=== PATIENT | female | born 1965 | race Caucasian/White ===

== ENCOUNTER 2023-03-08 00:52 | Emergency (ER) | payer MEDICARE, OTHER ==
[~2023-03-08] VITALS: Ht 157.5 cm; Wt 72.1 kg
[2023-03-08] MEDS ORDERED: SULFAMETHOXAZO1 EAC1 PO (01:13)
[2023-03-08] MEDS ORDERED: K-TAB ER20 ME1 PO (01:13)
[2023-03-08 02:26] LABS: Bun/Creatinine Ratio 22.9 (12.0-20.0); Calcium, Blood 8.9 mg/dL (8.5-10.1); Creatinine, Blood 0.92 mg/dL (0.40-1.00)
[2023-03-08 02:28] LABS: Hematocrit 36.1 % (33.0-51.0); Hemoglobin 11.5 g/dL (11.5-16.0); Mean Corpuscular HGB 25.1 pg (26.0-34.0); Mean Corpuscular HGB Conc 31.9 g/dL (31.5-36.5); Mean Corpuscular Volume 79 fL (80-100); Mean Platelet Volume 10.5 fL (9.1-12.4); Platelet Count 296 K/mm3 (150-400); RDW Coefficient Variation 17.2 % (11.7-14.2); RDW Standard Deviation 48.7 fL (35.1-46.3); Red Blood Cell Count 4.58 M/mm3 (3.80-5.20)
[2023-03-08] MEDS ORDERED: Voltaren100 GM TOP (02:44)
[2023-03-08 02:52] LABS: BASOPHILS ABSOLUTE MAN 0.08 K/mm3 (0.00-0.23); BASOPHILS PERCENT MAN 1 % (0-2); EOSINOPHILS ABSOLUTE MAN 0.16 K/mm3 (0.00-0.68); EOSINOPHILS PERCENT MAN 2 % (0-6); LYMPHOCYTES ABSOLUTE MAN 3.36 K/mm3 (0.84-5.20); LYMPHOCYTES PERCENT MAN 41 % (21-46); MONOCYTES ABSOLUTE MAN 0.57 K/mm3 (0.16-1.47); MONOCYTES PERCENT MAN 7 % (4-13); NEUTROPHILS ABSOLUTE MAN 4.01 K/mm3 (1.96-9.15); SEG NEUTROPHILS PERCENT MAN 49 % (41-73); TOTAL CELLS COUNTED 100
[2023-03-08 03:30] VITALS: BP 144/94
== END 2023-03-08 04:35 | disposition home or self-care (01) ==
LOC: ER 00:52
PROVIDERS: Emergency Medicine
DX: M17.12 Unilateral primary osteoarthritis, left knee (principal); I25.2 Old myocardial infarction; E11.40 Type 2 diabetes mellitus with diabetic neuropathy, unspecified; J44.9 Chronic obstructive pulmonary disease, unspecified; Z86.718 Personal history of other venous thrombosis and embolism; Z88.6 Allergy status to analgesic agent; Z88.8 Allergy status to other drugs, medicaments and biological substances; Z88.5 Allergy status to narcotic agent
CPT/HCPCS: 73562-LT; 80048; 85025; 93971; A9270

== ENCOUNTER 2024-04-28 10:29 | Inpatient (IN) | payer MEDICARE, OTHER ==
[2024-04-28] VITALS (18 sets, daily range): BP systolic 110–162; BP diastolic 59–140
[~2024-04-28] VITALS: Ht 162.6 cm; Wt 74.2 kg
[~2024-04-28 10:29] MED LIST: K-TAB ER20 ME1 PO; SULFAMETHOXAZO1 EAC1 PO; Voltaren100 GM TOP
[2024-04-28] MEDS ORDERED: Ipratropium/Albuterol SulF 2.5-0.5MG/3 ML Amp INH ONE (11:00)
[2024-04-28] MEDS ORDERED: Albuterol 2.5 MG/3 ML VIAL INH SCH ×2 (11:00→13:00)
[2024-04-28 11:03] LABS: BASOPHILS ABSOLUTE AUTO 0.07 K/mm3 (0.00-0.23); BASOPHILS PERCENT AUTO 1 % (0-2); EOSINOPHILS PERCENT AUTO 1 % (0-6); Hemoglobin 12.1 g/dL (11.5-16.0); IMMATURE GRAN ABSOLUTE AUTO 0.05 K/mm3 (0.00-0.10); IMMATURE GRAN PERCENT AUTO 1 % (0-1); LYMPHOCYTES ABSOLUTE AUTO 2.23 K/mm3 (0.84-5.20); LYMPHOCYTES PERCENT AUTO 24 % (21-46); MONOCYTES ABSOLUTE AUTO 0.61 K/mm3 (0.16-1.47); MONOCYTES PERCENT AUTO 7 % (4-13); Mean Corpuscular HGB 25.3 pg (26.0-34.0); Mean Corpuscular Volume 81 fL (80-100); Mean Platelet Volume 10.2 fL (9.1-12.4); NEUTROPHILS ABSOLUTE AUTO 6.21 K/mm3 (1.96-9.15); NEUTROPHILS PERCENT AUTO 67 % (41-73); Platelet Count 353 K/mm3 (150-400); RDW Standard Deviation 44.6 fL (35.1-46.3); Red Blood Cell Count 4.79 M/mm3 (3.80-5.20); White Blood Cell Count 9.27 K/mm3 (4.00-11.30)
[2024-04-28] MEDS ORDERED: Midazolam HCl 1MG / ML 2ML Vial IV ONE (11:05)
[2024-04-28] MEDS ORDERED: MethylPREDNISolone Sod Succ 125 MG Vial IV ONE (11:05)
[2024-04-28 11:27] LABS: Albumin/Globulin Ratio 0.7 (0.8-1.8); Bilirubin, Total 0.3 mg/dL (0.1-1.0); Bun/Creatinine Ratio 27.3 (12.0-20.0); Calcium, Blood 9.1 mg/dL (8.5-10.1); Creatinine, Blood 0.81 mg/dL (0.40-1.00); Globulin, Blood 4.3 g/dL (2.2-4.0); Potassium, Blood 4.2 mmol/L (3.5-5.5); Total Protein, Blood 7.3 g/dL (6.4-8.2)
[2024-04-28] MEDS ORDERED: Nitroglycerin 1 INCH/GM PKT TOP ONE (12:05)
[2024-04-28] MEDS ORDERED: Azithromycin 500 MG in NS 250 ML IV ONE (13:05)
[2024-04-28] MEDS ORDERED: Nitroglycerin/D5W 250 ML IV SCH (13:15)
[2024-04-28 13:19] LABS: International Normalized Ratio 0.96; Prothrombin Time Results 10.3 Sec (9.7-11.5)
[2024-04-28] MEDS ORDERED: FLU VACC TS2024-25(6MOS UP)/PF 45 MCG/0.5 ML SYRINGE IM SCH (13:45)
[2024-04-28] MEDS ORDERED: Ondansetron HCl 2 MG / ML 2ML Vial IV PRN (13:50)
[2024-04-28] MEDS ORDERED: TraZODone HCl 50 MG Tab PO PRN (13:50)
[2024-04-28] MEDS ORDERED: CefTRIAXone Sodium 2,000 MG in NS 100 ML IV SCH (14:00)
[2024-04-28] MEDS ORDERED: HydrOXYzine Pamoate 25 MG Cap PO PRN (14:00)
[2024-04-28] MEDS ORDERED: Ipratropium/Albuterol SulF 2.5-0.5MG/3 ML Amp INH SCH (14:05)
[2024-04-28] MEDS ORDERED: Tiotropium Bromide 2.5 MCG/ACT MIST INHAL (10 ACT/4 GM) INH SCH (14:05)
[2024-04-28] MEDS ORDERED: HYDROmorphone HCl/Pf 1MG SYR IV PRN (14:10)
[2024-04-28] MEDS ORDERED: Mometasone/Formoterol MDI 200/5 mcg 13 GM INH SCH (14:20)
[2024-04-28] MEDS ORDERED: Heparin Sodium 5000 Units/ML 1ML MDV IV ONE (14:25)
[2024-04-28] MEDS ORDERED: Heparin Sodium,Porcine/0.5 NS 500 ML IV SCH (14:25)
[2024-04-28] MEDS ORDERED: Insulin Human Lispro 100 Units/ML 3ML Syringe SC SCH (16:30)
[2024-04-28] MEDS ORDERED: Furosemide 10 MG/ML 4ML Vial IV SCH (18:00)
[2024-04-28] MEDS ORDERED: MethylPREDNISolone Sod Succ 125 MG Vial IV SCH (18:00)
--- NOTE | 2024-04-28 19:33 | NUR ---
ICU ADMISSION / SHIFT SUMMARY: REPORT RECEIVED FROM PEPE HAMMER IN ED. PT ARRIVED TO ICU-14 AT APPROX 1650. ON ARRIVAL, THE PT IS DROWSY BUT AWAKENS TO VERBAL STIMULUS & IS ORIENTED TO ALL AT THAT TIME. SHE IS ON BIPAP WITH SETTINGS 12/6 & 30% FIO2 WITH O2 SATS > 92%. MONITOR SHOWS AFIB WITH HR 100-110s, HTN - SEE VS. NPO R/T RESPIRATORY STATUS. VOIDS URINE USING BEDPAN, DIURESIS PER EMAR. SKIN CONDITION OVERALL INTACT, PT REPOSITIONS SELF FOR COMFORT. CALL TO DR HUMPHREY THIS EVENING AFTER PT REQUESTING BREAK FROM BIPAP, SHE HAS BEEN TOLERATING 3L NC WELL WITH O2 SATS > 94%. WORK OF BREATHING INCREASED SLIGHTLY BUT OVERALL TOLERATING BREAK WELL. PROVIDER OKAY'd DIET ORDER. THE PROVIDER IS ALSO NOTIFIED THAT THE PT DOES NOT WISH TO BE A FULL CODE. SHE STS THAT SHE WOULD LIKE TO "GO BE WITH" HER IF IT IS "HER TIME TO GO." SHE FURTHER CLARIFIES THAT SHE WOULD WANT NO LIFE-SAVING INTERVENTIONS IF SHE WAS TO EXPERIENCE A CARDIOPULMONARY ARREST. ORDERS UPDATED TO REFLECT DNR STATUS. REPORT GIVEN TO PEPE GAMBLE TO ASSUME CARE.
[2024-04-28 19:59] LABS: Source, Urine Clean Catch
[2024-04-28 20:10] LABS: Appearance, Urine Hazy (Clear); Bilirubin, Urine Neg (Neg); Blood, Urine Neg (Neg); Glucose Qualitative, Urine 2+ (Neg); Ketones, Urine Neg (Neg); Leukocyte Esterase, Urine 2+ (Neg); Nitrite, Urine Neg (Neg); Protein, Urine 2+ (Neg); Urobilinogen, Urine NORM (Normal)
[2024-04-28 20:51] LABS: Color, Urine Pale Yellow (P-Yellow)
[2024-04-28 20:52] LABS: Bacteria Many /hpf; Mucus Light (0-Heavy); Red Blood Cells, Urine 0-2 /hpf (0-2); Squamous Epithelial Cells Rare /hpf (Few)
[2024-04-28] MEDS ORDERED: Famotidine 20 MG Tab PO SCH (21:00)
[2024-04-28] MEDS ORDERED: GuaiFENesin 600 MG TabCR PO SCH (21:00)
[2024-04-28] MEDS ORDERED: Metoprolol Tartrate 25 MG Tab PO SCH (21:00)
[2024-04-28] MEDS ORDERED: Lactobacil 2-S.Thermo-Bifido 1 1 Cap PO SCH (21:00)
[2024-04-28] MEDS ORDERED: Docusate Sodium 100 MG Cap PO SCH (21:00)
--- NOTE | 2024-04-28 22:00 | NUR ---
ASSUMPTION OF CARE/ASSESSMENT: ASSUMED CARE OF PT AT 1900; REPORT RECIEVED FROM EFRAIN CANTU. PT A&O X 4, ANXIOUS AND FOLLOWING DIRECTIONS. CURRENTLY PT HAS NC @ 2LPM, SPO2 94< AND LUNGS ARE CLEAR T/O; DRY COUGH NOTED, DENIES SOB AT THIS TIME. AFIB ON MONITOR WITH HR 110-140'S, C/O CHEST PAIN, 7/10 WITH DEFERRED PAIN TO BACK, NECK AND LEFT ARM. NITRO @ 10 MCG/MIN, HEPARIN @ 15 UNITS/HR. ABD OBESE, SOFT AND HYPOACTIVE BOWEL TONES NOTED; PT TOLERATES PO INTAKE. PT USING BEDPAN FOR ELIMINATION NEEDS; BEDREST AT THIS TIME DUE TO HR. GREER, MINIMAL ASSIST WITH REPOSITIONING. LH PATENT AND INFUSING, LAC PATENT AND INFUSING. PRN ANIXETY MEDS PER EMAR. BED LOWERED, CALL LIGHT IN REACH.
[2024-04-28] MEDS ORDERED: Clarify Drug Order XX ONE (22:25)
[2024-04-29] VITALS (30 sets, daily range): BP systolic 102–167; BP diastolic 76–128
[2024-04-29 03:38] LABS: BASOPHILS ABSOLUTE AUTO 0.01 K/mm3 (0.00-0.23); BASOPHILS PERCENT AUTO 0 % (0-2); EOSINOPHILS PERCENT AUTO 0 % (0-6); Hemoglobin 10.7 g/dL (11.5-16.0); IMMATURE GRAN ABSOLUTE AUTO 0.03 K/mm3 (0.00-0.10); IMMATURE GRAN PERCENT AUTO 0 % (0-1); LYMPHOCYTES ABSOLUTE AUTO 0.83 K/mm3 (0.84-5.20); LYMPHOCYTES PERCENT AUTO 7 % (21-46); MONOCYTES ABSOLUTE AUTO 0.15 K/mm3 (0.16-1.47); MONOCYTES PERCENT AUTO 1 % (4-13); Mean Corpuscular HGB 25.1 pg (26.0-34.0); Mean Corpuscular HGB Conc 31.5 g/dL (31.5-36.5); Mean Corpuscular Volume 80 fL (80-100); Mean Platelet Volume 10.3 fL (9.1-12.4); NEUTROPHILS ABSOLUTE AUTO 11.25 K/mm3 (1.96-9.15); NEUTROPHILS PERCENT AUTO 92 % (41-73); Platelet Count 327 K/mm3 (150-400); RDW Coefficient Variation 15.2 % (11.7-14.2); RDW Standard Deviation 43.5 fL (35.1-46.3); Red Blood Cell Count 4.26 M/mm3 (3.80-5.20); White Blood Cell Count 12.27 K/mm3 (4.00-11.30)
[2024-04-29 04:00] LABS: Albumin, Blood 2.7 g/dL (3.4-5.0); Albumin/Globulin Ratio 0.7 (0.8-1.8); Bilirubin, Total 0.3 mg/dL (0.1-1.0); Bun/Creatinine Ratio 32.5 (12.0-20.0); Calcium, Blood 8.5 mg/dL (8.5-10.1); Creatinine, Blood 0.77 mg/dL (0.40-1.00); Globulin, Blood 3.7 g/dL (2.2-4.0); Potassium, Blood 4.3 mmol/L (3.5-5.5); Total Protein, Blood 6.4 g/dL (6.4-8.2)
[2024-04-29] MEDS ORDERED: OxyCODONE HCL 5 MG TAB PO PRN ×3 (05:00→11:30)
[2024-04-29] MEDS ORDERED: Calcium Carbonate 500 MG Tab Chew PO PRN (05:00)
[2024-04-29] MEDS ORDERED: Clarify Drug Order XX ONE (05:20)
[2024-04-29] MEDS ORDERED: Albuterol 2.5 MG/3 ML VIAL INH PRN (05:20)
--- NOTE | 2024-04-29 06:29 | NUR ---
SHIFT SUMMARY: NO ACUTE CHANGES OVERNIGHT; VSS THROUGHOUT THE SHIFT. NITRO GTT OFF, CHEST PAIN RESOLVED AT THIS TIME. PT C/O BACK AND NECK PAIN, PRN OXYCODONE GIVEN WITH GOOD RELIEF. PT RESTLESS AND UNABLE TO GET MUCH SLEEP; PT RESTING NOW AFTER PAIN MED. PT ANXIOUS THROUGHOUT THE SHIFT AND OBSERVED TO BE HAVING FEELINGS OF HOPELESSNESS STATING THAT SHE JUST WANTS "TO BE REUNITED WITH MY " WHOM HAS PASSED ABOUT 2 MONTHS AGO; WHEN ASKED ABOUT SI, PT DECLINES. URINE OUTPUT GOOD. BED LOWERED, CALL LIGHT IN REACH.
--- NOTE | 2024-04-29 07:00 | NUR ---
ASSUMED CARE PT RESTING WITH EYES CLOSED DURING BSSR. SHE HAS HEPARIN INFUSING @ 15UNITS/KG/HR. PT HAS HOB ELEVATED TO 30. HER SPO2 IS >96% ON RA. HER BREATHING IS EVEN AND UNLABORED. PT HAS CONTINUOUS CARDIAC MONITORING, HER SYSTOLIC BP >130 W/ SYSTOLIC >100. PER NOC RN, SHE HAS NOT COMPLAINED OF CHEST PAIN SINCE DC HER NITROGLYCERIN DRIP ON TECHNICAL SOURCING RECRUITER. HER HR IS 100-110S. BED IN LOWEST POSITION. CALL LIGHT IN REACH.
[2024-04-29] MEDS ORDERED: Heparin Sodium,Porcine 5,000 UNIT/0.5 ML SDV SC SCH (09:00)
[2024-04-29] MEDS ORDERED: ALPR.5 PO (09:04)
[2024-04-29] MEDS ORDERED: ALPRAZolam 0.25 MG Tab PO PRN (09:05)
[2024-04-29] MEDS ORDERED: Prochlorperazine Maleate 5 MG Tab PO PRN (09:10)
[2024-04-29] MEDS ORDERED: Zolpidem Tartrate 5 MG Tab PO PRN (09:10)
[2024-04-29] MEDS ORDERED: Citalopram Hydrobromide 10 MG TAB PO SCH (10:00)
[2024-04-29] MEDS ORDERED: Nicotine 21 MG PATCH TOP SCH (13:00)
[2024-04-29] MEDS ORDERED: Digoxin 0.25 MG/ML 2ML Amp IV ONE (13:00)
--- NOTE | 2024-04-29 14:24 | NUR ---
"Spiritual Care Visit | Pt. Request Pt. is laying in bed awake when she welcomes my visit. Pt. is unsettled about the circumstances in her life. The Pt. is grieving the loss of her , and verbalizes despair about the corcumsyances of her life. The Pt. verbalizes that her primary motivation to get well are her dogs. Pt. displayed evidence of blaming God for the circumstances of her life. With theraputic listening and an empathetic presence the Pt. agrees to have this caretaker return to visit her."
[2024-04-29] MEDS ORDERED: Insulin Glargine-Yfgn 100 Unit/mL 3 ML SYR SC SCH (15:00)
--- NOTE | 2024-04-29 15:30 | NUR ---
TRANSFER TO PCU/SHIFT SUMMARY PT TRANSFERRED TO PCU WITH HER BELONGINGS. SHE IS ON 3LPM 02 VIA DE. HER HEPARIN IS AT 15UNITS/KG/HR. PT HAD INITIAL LOADING DOSE OF DIGOXIN PER EMAR AT 1300. HER HR REMAINS 130-140S. SHE DENIES ANY CHEST PAIN. REPORT GIVEN TO MOSES CANTU.
--- NOTE | 2024-04-29 16:37 | NUR ---
PT WAS AN ICU TRANSFER THIS LATE AFTERNOON. REPORT RECIEVED FROM SIMEON CANTU. THE PT IS VERY DROWSY BUT ORIENTEDX4 BED ALARM PLACED D/T IMPULSIVENESS THIS ADMISSION WHILE IN ICU. SHE IS ON 3L NC W/ SP02 >93%. BP HYPERTENSIVE, BUT STABLE. ON TELE SHE IS AFIB 100'S-120'S. SHE IS C/O CONSTANT CHEST TIGHTNESS. SHE STATED IT IS THE SAME CHEST TIGHTNESS THAT WAS REPORTED IN ICU. A WORK UP WAS DONE IN ICU FOR THE SAME COMPLAINT. THE PT HAS BEEN SLEEPING SINCE ARRIVING TO PCU. SEE NOTES FOR UPDATES.
[2024-04-29] MEDS ORDERED: Digoxin 0.25 MG/ML 2ML Amp IV SCH (19:00)
[2024-04-30] VITALS (9 sets, daily range): BP systolic 133–167; BP diastolic 83–122
[2024-04-30 04:11] LABS: BASOPHILS ABSOLUTE AUTO 0.04 K/mm3 (0.00-0.23); BASOPHILS PERCENT AUTO 0 % (0-2); EOSINOPHILS PERCENT AUTO 0 % (0-6); Hematocrit 37.5 % (33.0-51.0); Hemoglobin 11.7 g/dL (11.5-16.0); IMMATURE GRAN ABSOLUTE AUTO 0.12 K/mm3 (0.00-0.10); IMMATURE GRAN PERCENT AUTO 1 % (0-1); LYMPHOCYTES PERCENT AUTO 4 % (21-46); MONOCYTES ABSOLUTE AUTO 0.46 K/mm3 (0.16-1.47); MONOCYTES PERCENT AUTO 2 % (4-13); Mean Corpuscular HGB 24.8 pg (26.0-34.0); Mean Corpuscular HGB Conc 31.2 g/dL (31.5-36.5); Mean Corpuscular Volume 80 fL (80-100); Mean Platelet Volume 11.4 fL (9.1-12.4); NEUTROPHILS ABSOLUTE AUTO 22.67 K/mm3 (1.96-9.15); NEUTROPHILS PERCENT AUTO 94 % (41-73); Platelet Count 354 K/mm3 (150-400); RDW Coefficient Variation 15.4 % (11.7-14.2); RDW Standard Deviation 44.3 fL (35.1-46.3); Red Blood Cell Count 4.71 M/mm3 (3.80-5.20); White Blood Cell Count 24.19 K/mm3 (4.00-11.30)
[2024-04-30 04:31] LABS: Alanine Aminotransfer (ALT/SGP 103 U/L (12-78); Albumin/Globulin Ratio 0.8 (0.8-1.8); Alk Phos 193 U/L (50-136); Anion Gap 15 mmol/L (3-11); Aspartate Aminotrans (AST/SGOT 33 U/L (12-37); Bilirubin, Total 0.3 mg/dL (0.1-1.0); Blood Urea Nitrogen 38 mg/dL (8-24); Bun/Creatinine Ratio 43.9 (12.0-20.0); CHOL/HDL RATIO 4.1; CO2, Blood 24 mmol/L (21-32); Calcium, Blood 9.5 mg/dL (8.5-10.1); Chloride, Blood 98 mmol/L (98-108); Cholesterol 174 mg/dL (50-200); Creatinine, Blood 0.87 mg/dL (0.40-1.00); Glomerular Filtration Rate 78 (60-); Glucose, Blood 431 mg/dL (70-99); HDL Cholesterol 42 mg/dL (>39); LDL/HDL RATIO 2.2; Low Density Lipoprotein Chol 91 mg/dL (0-110); Magnesium, Blood 2.2 mg/dL (1.6-2.4); Potassium, Blood 4.6 mmol/L (3.5-5.5); Sodium, Blood 132 mmol/L (136-145); Triglycerides 207 mg/dL (30-160); Very Low Density Lipoprot Chol 41 mg/dL (6-32)
--- NOTE | 2024-04-30 05:55 | NUR ---
SHIFT SUMMARY PATIENT ALERT AND ORIENTED X4. MEDICATED PER EMAR FOR PAIN AND ANXIETY. PATIENT REPORTED HAVING SHORTNESS OF BREATH WELL, BREATHING TREATMENTS ADMINISTERED BY RT. PATIENT ON BASELINE OF 3 LITERS O2 VIA NC WITH SPO2 >90%. VITAL SIGNS STABLE, AFIB ON TELE. WILL CONTINUE TO MONITOR. CALL LIGHT WITHIN REACH.
[2024-04-30] MEDS ORDERED: Clarify Drug Order XX ONE (06:15)
--- NOTE | 2024-04-30 07:22 | NUR ---
DR. HUMPHREY NOTIFIED OF CBG 412, CONSISTENT HTN, AND AFIB RVR. SHE WILL BE LOOKING AT MEDICATIONS AND MAKING ADJUSTMENTS. SEE NOTE FOR UPDATES.
[2024-04-30] MEDS ORDERED: Ipratropium/Albuterol SulF 2.5-0.5MG/3 ML Amp INH PRN (08:00)
[2024-04-30] MEDS ORDERED: Digoxin 0.25 MG Tab PO SCH (09:00)
[2024-04-30] MEDS ORDERED: Empagliflozin 10 MG TAB PO SCH (09:00)
[2024-04-30] MEDS ORDERED: Losartan Potassium 25 MG Tab PO SCH (09:00)
[2024-04-30] MEDS ORDERED: Atorvastatin 10 MG Tab PO SCH (09:00)
[2024-04-30] MEDS ORDERED: Insulin Glargine-Yfgn 100 Unit/mL 3 ML SYR SC SCH (09:00)
[2024-04-30] MEDS ORDERED: Metoprolol Tartrate 50 MG Tab PO SCH (09:00)
[2024-04-30] MEDS ORDERED: PredniSONE 20 MG Tab PO SCH (09:00)
[2024-04-30] MEDS ORDERED: Apixaban 5 MG Tab PO SCH (09:00)
[2024-04-30] MEDS ORDERED: ALPRAZolam 1 MG Tab PO PRN (09:20)
--- NOTE | 2024-04-30 13:41 | NUR ---
Spiritual Care Visit. Pt. is awake in a chair when i come to her room. Pt. is unsettled and verbalized a desire to get back into her bed. This international exchange coordinator notified the Pts. nurse. Pt. displayed evidence of being discouraged. Listened with empathy nd a calming presence. Prayed for the Pt. Pt. became somnolent during prayer. Will remain available to Pt.
--- NOTE | 2024-04-30 18:23 | NUR ---
SHIFT SUMMARY THE PT IS A&OX4, CALLS APPROPRAITELY, BUT HAS HAD OME ANXIETY TODAY. SHE ADMITTED TO BEING A DAILY METH USER AND AST USED THREE DAYS AGO. SHE STATED SHE WAS USING IT TO DO HARM TO HERSELF BECAUSE SHE MISSES HER . DR. HUMPHREY AWARE. TERESITA CONSTULED AND DR. MAHAN WAS CONTACTED. DR. CARTER STOPPED BY TO SEE THE PT AND WANTS TO MEDICALLY MANAGE HER. THE PT WAS STARTED ON ELIQUIS AND AN AMIO GTT TODAY. HEP GTT D/C'D ONE HOUR AFTER ELIQUIS ADMINISTRATION PER DR. CARTER. THE PT HAS C/O PAIN IN HER SHOULDERS AND NECK AND WAS MEDICATED PER EMAR. ON TELE SHE IS AFLUTTER 90'S-110'S. SHE IS STILL HYPERTENSIVE. DR. HUMPHREY AWARE. SHE REMAINS ON HER BL 3L NC W/O AND C/O SOB. SEE NOTES FOR ANY UPDATES.
[2024-05-01] VITALS (7 sets, daily range): BP systolic 115–149; BP diastolic 68–107
[2024-05-01 04:48] LABS: BASOPHILS ABSOLUTE AUTO 0.02 K/mm3 (0.00-0.23); BASOPHILS PERCENT AUTO 0 % (0-2); EOSINOPHILS PERCENT AUTO 0 % (0-6); Hematocrit 41.7 % (33.0-51.0); Hemoglobin 12.8 g/dL (11.5-16.0); IMMATURE GRAN PERCENT AUTO 1 % (0-1); LYMPHOCYTES ABSOLUTE AUTO 2.75 K/mm3 (0.84-5.20); LYMPHOCYTES PERCENT AUTO 14 % (21-46); MONOCYTES ABSOLUTE AUTO 1.24 K/mm3 (0.16-1.47); MONOCYTES PERCENT AUTO 6 % (4-13); Mean Corpuscular HGB 24.6 pg (26.0-34.0); Mean Corpuscular HGB Conc 30.7 g/dL (31.5-36.5); Mean Corpuscular Volume 80 fL (80-100); Mean Platelet Volume 10.7 fL (9.1-12.4); NEUTROPHILS ABSOLUTE AUTO 16.05 K/mm3 (1.96-9.15); NEUTROPHILS PERCENT AUTO 80 % (41-73); Platelet Count 391 K/mm3 (150-400); RDW Coefficient Variation 15.3 % (11.7-14.2); RDW Standard Deviation 44.1 fL (35.1-46.3); Red Blood Cell Count 5.21 M/mm3 (3.80-5.20); White Blood Cell Count 20.16 K/mm3 (4.00-11.30)
[2024-05-01 05:21] LABS: Albumin, Blood 2.9 g/dL (3.4-5.0); Albumin/Globulin Ratio 0.8 (0.8-1.8); Bilirubin, Total 0.3 mg/dL (0.1-1.0); Bun/Creatinine Ratio 38.7 (12.0-20.0); Calcium, Blood 9.3 mg/dL (8.5-10.1); Creatinine, Blood 1.06 mg/dL (0.40-1.00); Globulin, Blood 3.8 g/dL (2.2-4.0); Magnesium, Blood 2.4 mg/dL (1.6-2.4); Phosphorus, Blood 4.8 mg/dL (2.5-4.9); Potassium, Blood 4.1 mmol/L (3.5-5.5); Total Protein, Blood 6.7 g/dL (6.4-8.2)
--- NOTE | 2024-05-01 06:38 | NUR ---
SHIFT SUMMARY PATIENT ALERT AND ORIENTED X4. MEDICATED PER EMAR FOR PAIN AND ANXIETY. ON BASELINE O2 OF 3 LITERS WITH SPO2 >90%. VITAL SIGNS STABLE. CONTINUES ON AMIODARONE DRIP. NO ACUTE ISSUES NOTED OVERNIGHT. WILL CONTINUE TO MONITOR. CALL LIGHT WITHIN REACH.
[2024-05-01] MEDS ORDERED: Atorvastatin 10 MG Tab PO SCH (09:00)
[2024-05-01] MEDS ORDERED: Insulin Glargine-Yfgn 100 Unit/mL 3 ML SYR SC SCH (09:00)
[2024-05-01] MEDS ORDERED: Metoprolol Succinate 50 MG TABCR PO SCH (09:00)
[2024-05-01] MEDS ORDERED: CHLORPROMAZINE HCL 25 MG PO ONE (13:30)
--- NOTE | 2024-05-01 13:42 | NUR ---
UPDATE MD CARTER CALLED W/ ORDERS TO TRANSITION TO PO AMIODERONE IN AM, SEE ORDERS. MD LANE IN ROOM TO ASSESS. STARTED PT ON ONE TIME DOSE OF THORAZINE TO SEE HOW PT TOLERATES, SEE ORDERS. PT RESTING IN BED, FRIENDS IN ROOM VISITING.
[2024-05-01] MEDS ORDERED: CHLORPROMAZINE HCL 25 MG PO PRN (15:50)
--- NOTE | 2024-05-01 18:39 | NUR ---
SHIFT SUMMARY PT ALERT, ORIENTED. ABLE TO MAKE NEEDS KNOWN, USES CALL LIGHT APPROPRIATELY BUT GETS UP ON OWN IF NOT REPSONDED TO QUICKLY. SP02>90% ON RA. TELEMETRY SHOWS AFIB/FLUTTER, HR 80'S-120'S. AMIO GTT INFUSED IN AM. MD CARTER W/ ORDERS TO SWITCH TO PO STARTING TOMORROW AM, SEE EMAR. NEW IV PLACED IN L WRIST. MD LANE IN ROOM TO ASSESS. PSYCH MEDICATION CHANGES, STARTED THORAZINE THIS AFTERNOON. PT ABLE TO TAKE A BRIEF NAP BEFORE FAMILY CAME IN TO VISIT. PT UP TO BSC FREQUENTLY TO VOID. 1 BM THIS SHIFT. ABX INFUSED PER EMAR. PT UP IN RECLINER FREQUENTLY. CURRENTLY RESTING IN BED, CALL LIGHT IN REACH.
[2024-05-01] MEDS ORDERED: CHLORPROMAZINE HCL 25 MG PO SCH (21:00)
[2024-05-02 00:34] VITALS: BP 117/67
[2024-05-02 03:30] VITALS: BP 122/105
[2024-05-02 05:37] LABS: Hematocrit 45.3 % (33.0-51.0)
[2024-05-02 06:22] LABS: Bun/Creatinine Ratio 40.9 (12.0-20.0); Calcium, Blood 9.2 mg/dL (8.5-10.1); Creatinine, Blood 1.15 mg/dL (0.40-1.00); Magnesium, Blood 2.4 mg/dL (1.6-2.4); Potassium, Blood 4.4 mmol/L (3.5-5.5)
--- NOTE | 2024-05-02 06:39 | NUR ---
SHIFT SUMMARY PATIENT ALERT AND ORIENTED X4. MEDICATED PER EMAR FOR PAIN. PATIENT SLEPT ALL NIGHT BUT WAS DIFFICULT TO ROUSE TO GIVE HER EVENING MEDICATION. SHE WAS ON ROOM AIR OVERNIGHT WITH SPO2 >90%. VITAL SIGNS STABLE. NO ACUTE ISSUES NOTED OVERNIGHT. WILL CONTINUE TO MONITOR. CALL LIGHT WITHIN REACH.
[2024-05-02 08:21] VITALS: BP 132/75
[2024-05-02] MEDS ORDERED: Furosemide 20 MG Tab PO SCH (09:00)
[2024-05-02] MEDS ORDERED: Insulin Glargine-Yfgn 100 Unit/mL 3 ML SYR SC SCH ×2 (09:00→18:00)
[2024-05-02] MEDS ORDERED: Amiodarone HCl 200 MG Tab PO SCH (09:00)
[2024-05-02] MEDS ORDERED: Cephalexin Monohydrate 500 MG Cap PO SCH (09:00)
[2024-05-02 11:28] VITALS: BP 140/77
--- NOTE | 2024-05-02 12:09 | NUR ---
ASSUMED CARE AT 0700 AND RECEIVED REPORT FROM MANAGER MED SURG RN. PT RESTING COMFORTABLY IN BED, APPEARS TO BE SLEEPING. O2 ABOVE 90% ON ROOM AIR. HR 100'S.
--- NOTE | 2024-05-02 18:41 | NUR ---
SHIFT SUMMARY PT ALERT AND ORIENTED FOR MOST OF THE SHIFT, BUT WAS CONFUSED AND GR0GGY UPON WAKING AT TIMES. BP STABLE, HR IN 100S-120S, BUT DID INCREASE TO 130'S AFTER A 50M AMBULATION IN THE HALLWAY. PT REPORTED LOOSE STOOLS BEGINNING THIS MORNING. SHE REPORTED NECK PAIN THIS AFTERNOON AND WAS TREATED PER SEP. PT WAS STATUS CHANGED AND TRANSFERRED UP TO THE MEDICAL FLOOR WITH TELE THIS EVENING. REPORT WAS GIVEN TO RN ASSUMING CARE.
[2024-05-02 19:28] VITALS: BP 137/89
--- NOTE | 2024-05-02 19:44 | NUR ---
SHIFT SUMMARY- PT ALERT AND ORIENTED, SHE TRANSFERED FROM PCU JUST BEFORE SHIFT CHANGE. PT WAS PLACED IN THE BED 1P SBA, SHE IMMEDIATELY REQUESTED COFFEE. LINOLEUM INSTALLER PROVIDED HER WITH A CUP OF TEA. REPORT WAS PASSED ON TO NIGHT RN AT THE BEDSIDE. 2 RN SKIN CHECK COMPLETED WITH PEPE STEIN. PT IN BED AT THE TIME OF BEDSIDE REPORT, NO S&S OF DISTRESS NOTED.
--- NOTE | 2024-05-03 00:13 | NUR ---
PER TELE, PT HAD 6 BEAT RUN OF V-TACH. PT ASYMPTOMATIC. DENIES CP/PRESSURE. MD CALLED AND ORDERS GIVEN FOR MAG AND BMP MORNING LAB DRAW.
--- NOTE | 2024-05-03 04:08 | NUR ---
SHIFT SUMMARY PT A&Ox4. ANXIOUS AFFECT, PT ROCKS WHEN AWAKE AND SITTING AT EDGE OF BED. NO C/O PAIN. ON RA AND SATING >93%, DENIES FEELING SOB. PER TELE, PT HAD 6 BEAT RUN OF V-TACH. MD AWARE, SEE EARLIER NOTE. BG ELEVATED AND INSULIN GIVEN PER EMAR. FREQUENTLY REQUESTS SNACKS, EDUCATION PROVIDED ON CONSITENT CARB DIET. PT CALLS APPROPRIATLY. EVENING VSS BUT PT REFUSED MORNING VITIALS, WILL ATTEMPT AGAIN WHEN LAB IS AT BEDSIDE. BED IN LOWEST POSITION AND CALL LIGHT IN REACH.
[2024-05-03 06:59] LABS: Hematocrit 42.3 % (33.0-51.0)
[2024-05-03 07:28] LABS: Calcium, Blood 8.8 mg/dL (8.5-10.1); Creatinine, Blood 0.97 mg/dL (0.40-1.00); Magnesium, Blood 2.3 mg/dL (1.6-2.4); Phosphorus, Blood 4.3 mg/dL (2.5-4.9)
[2024-05-03 07:39] VITALS: BP 144/98
[2024-05-03 07:40] VITALS: BP 144/98
[2024-05-03] MEDS ORDERED: ELIQUIS5 M2 PO (13:48)
[2024-05-03] MEDS ORDERED: CEPH500 PO (13:49)
[2024-05-03] MEDS ORDERED: ATOR20 PO (13:49)
[2024-05-03] MEDS ORDERED: CHLO25A PO (13:51)
[2024-05-03] MEDS ORDERED: JARDIANCE10 MG PO (13:52)
[2024-05-03] MEDS ORDERED: FURO20 PO (13:54)
[2024-05-03] MEDS ORDERED: LOSA25 PO (13:55)
[2024-05-03] MEDS ORDERED: METO50ER PO (13:56)
[2024-05-03] MEDS ORDERED: NICO21TP TOP (13:57)
[2024-05-03] MEDS ORDERED: DULERA 200 MCG-13 GM INH (13:57)
[2024-05-03] MEDS ORDERED: Amiodarone HCl200 MG PO (13:59)
[2024-05-03] MEDS ORDERED: REZVOGLAR100 UNIT/1 SC (14:01)
[2024-05-03] MEDS ORDERED: PRED20 PO (14:03)
--- NOTE | 2024-05-03 14:22 | NUR ---
PT DISCHARGED TO HOME. PT LEFT ROOM VIA WHEELCHAIR WITH CHANNEL ROUGHER ESCORT JUST PRIOR TO THIS NOTE. PT EDUCATED ON ALL DISCHARGE INSTRUCTIONS, ALL QUESTIONS ANSWERED. THIS NURSE EDUCATED ON THE IMPORTANCE OF PICKING UP MEDICATIONS FROM PHARMACY AND TO TAKE THEM PRESCRIBED. PT REFUSED THIS NURSE SEND MED REC TO PHARMACY THAT IS OPEN TODAY AND STATES THAT SHE WILL TRAFFIC ADMINISTRATOR MEDICATIONS TOMORROW DESPITE THIS NURSES EDUCATION. IV REMOVED AND BELONGINGS RETURNED. THIS NURSE ALSO EDUCATED PT ON IMPROTANCE OF CHECKING CBG PRIOR TO MEDICATING WITH INSULIN. PT AGREES TO CHECK HER BLOOD SUGAR ORDERED.
[2024-05-16] MEDS ORDERED: Amiodarone HCl 200 MG Tab PO SCH (09:00)
[2024-05-30] MEDS ORDERED: Amiodarone HCl 200 MG Tab PO SCH (09:00)
== END 2024-05-03 14:20 | disposition home or self-care (01) | DRG 280 ==
LOC: ER 10:29 → ICUE 13:44 → PCU 13:44 → ICUE 15:52 → PCU 04-29 15:58 → MEDS 05-02 18:39
PROVIDERS: Student in an Organized Health Care Education/Training Program; ADMIT Hospitalist
PROC: 5A09357 Assistance with Respiratory Ventilation, Less than 24 Consecutive Hours, Continuous Positive Airway Pressure (ICD-10-PCS; principal; 2024-04-28)
DX: I11.0 Hypertensive heart disease with heart failure (principal); I50.23 Acute on chronic systolic (congestive) heart failure; I21.A1 Myocardial infarction type 2; J96.00 Acute respiratory failure, unspecified whether with hypoxia or hypercapnia; J44.1 Chronic obstructive pulmonary disease with (acute) exacerbation; F33.3 Major depressive disorder, recurrent, severe with psychotic symptoms; I48.91 Unspecified atrial fibrillation; F17.210 Nicotine dependence, cigarettes, uncomplicated; F41.9 Anxiety disorder, unspecified; I25.10 Atherosclerotic heart disease of native coronary artery without angina pectoris; M79.7 Fibromyalgia; F43.12 Post-traumatic stress disorder, chronic; F15.10 Other stimulant abuse, uncomplicated; E11.65 Type 2 diabetes mellitus with hyperglycemia; I25.2 Old myocardial infarction; Z88.8 Allergy status to other drugs, medicaments and biological substances; Z88.6 Allergy status to analgesic agent; Z88.5 Allergy status to narcotic agent; Z86.711 Personal history of pulmonary embolism
CPT/HCPCS: 36415; 71045; 71260; 80048; 80053; 80061; 81001; 82947; 83036; 83690; 83735; 83880; 84100; 84484; 85014; 85018; 85025; 85520; 85610; 85730; 93005; 93010; 94640; 94644; 94645; 94660; 94664; 94760; 94762; 96365-59; 96366-59; 96375-59; 99285-25; A9270; C8929; J0282; J0456; J0696; J1160; J1170; J1644; J1815; J1940; J2250; J2919; J7050; J7060; J7512; Q0177; Q9957; Q9967

== ENCOUNTER 2024-05-10 18:17 | Emergency (ER) | payer MEDICARE, OTHER ==
[~2024-05-10] VITALS: Ht 157.5 cm; Wt 54.4 kg
[~2024-05-10 18:17] MED LIST changes: +ALPR.5 PO; +ATOR20 PO; +Amiodarone HCl200 MG PO; +CEPH500 PO; +CHLO25A PO; +DULERA 200 MCG-13 GM INH; +ELIQUIS5 M2 PO; +FURO20 PO; +JARDIANCE10 MG PO; +LOSA25 PO; +METO50ER PO; +NICO21TP TOP; +PRED20 PO; +REZVOGLAR100 UNIT/1 SC
[2024-05-10 19:02] LABS: Hematocrit 37.2 % (33.0-51.0); Hemoglobin 11.6 g/dL (11.5-16.0); Mean Corpuscular HGB 24.9 pg (26.0-34.0); Mean Corpuscular HGB Conc 31.2 g/dL (31.5-36.5); Mean Corpuscular Volume 80 fL (80-100); RDW Coefficient Variation 15.9 % (11.7-14.2); RDW Standard Deviation 45.1 fL (35.1-46.3); Red Blood Cell Count 4.66 M/mm3 (3.80-5.20); White Blood Cell Count 21.87 K/mm3 (4.00-11.30)
[2024-05-10 19:03] LABS: Albumin, Blood 2.6 g/dL (3.4-5.0); Albumin/Globulin Ratio 0.8 (0.8-1.8); Bilirubin, Total 0.2 mg/dL (0.1-1.0); Bun/Creatinine Ratio 41.4 (12.0-20.0); Calcium, Blood 8.3 mg/dL (8.5-10.1); Creatinine, Blood 0.77 mg/dL (0.40-1.00); Globulin, Blood 3.3 g/dL (2.2-4.0); Potassium, Blood 4.3 mmol/L (3.5-5.5); Total Protein, Blood 5.9 g/dL (6.4-8.2)
[2024-05-10] MEDS ORDERED: FentaNYL Citrate 50 MCG/ML 2 ML Injection IV ONE (19:15)
[2024-05-10 19:25] LABS: BAND PERCENT MAN 2 % (0-8); BASOPHILS PERCENT MAN 0 % (0-2); EOSINOPHILS PERCENT MAN 0 % (0-6); LYMPHOCYTES ABSOLUTE MAN 0.87 K/mm3 (0.84-5.20); LYMPHOCYTES PERCENT MAN 4 % (21-46); MONOCYTES ABSOLUTE MAN 0.87 K/mm3 (0.16-1.47); MONOCYTES PERCENT MAN 4 % (4-13); NEUTROPHILS ABSOLUTE MAN 20.12 K/mm3 (1.96-9.15); SEG NEUTROPHILS PERCENT MAN 90 % (41-73); TOTAL CELLS COUNTED 100
[2024-05-10 19:26] LABS: Mean Platelet Volume 10.3 fL (9.1-12.4); Platelet Count 249 K/mm3 (150-400)
[2024-05-10 20:30] VITALS: BP 123/77
[2024-05-10] MEDS ORDERED: RX Prepack 6 Tabs Oxycodone 5mg UD ONE (21:35)
[2024-05-10] MEDS ORDERED: RX Prepack 2 Tabs Ondansetron ODT 4MG UD ONE (21:35)
== END 2024-05-10 22:01 | disposition home or self-care (01) ==
LOC: ER 18:17
PROVIDERS: Emergency Medicine
DX: R07.89 Other chest pain (principal); Z88.8 Allergy status to other drugs, medicaments and biological substances; Z88.6 Allergy status to analgesic agent; Z88.5 Allergy status to narcotic agent; Z79.899 Other long term (current) drug therapy; Z79.4 Long term (current) use of insulin; E11.40 Type 2 diabetes mellitus with diabetic neuropathy, unspecified; J44.9 Chronic obstructive pulmonary disease, unspecified; I25.2 Old myocardial infarction
CPT/HCPCS: 71045; 80053; 84484; 85025; 93005; 93010; 96374; 99285-25; A9270; J3010

== ENCOUNTER 2024-09-09 17:38 | Emergency (ER) | payer MEDICARE, OTHER ==
[~2024-09-09] VITALS: Ht 157.5 cm; Wt 99.8 kg
[2024-09-09] MEDS ORDERED: HyDROXyzine HCl 25 MG Tab PO ONE (17:45)
[2024-09-09 18:06] LABS: BASOPHILS ABSOLUTE AUTO 0.09 K/mm3 (0.00-0.23); BASOPHILS PERCENT AUTO 1 % (0-2); EOSINOPHILS ABSOLUTE AUTO 0.21 K/mm3 (0.00-0.68); EOSINOPHILS PERCENT AUTO 2 % (0-6); Hematocrit 32.7 % (33.0-51.0); Hemoglobin 10.2 g/dL (11.5-16.0); IMMATURE GRAN ABSOLUTE AUTO 0.06 K/mm3 (0.00-0.10); IMMATURE GRAN PERCENT AUTO 1 % (0-1); LYMPHOCYTES ABSOLUTE AUTO 2.47 K/mm3 (0.84-5.20); LYMPHOCYTES PERCENT AUTO 20 % (21-46); MONOCYTES ABSOLUTE AUTO 0.74 K/mm3 (0.16-1.47); MONOCYTES PERCENT AUTO 6 % (4-13); Mean Corpuscular HGB 23.2 pg (26.0-34.0); Mean Corpuscular HGB Conc 31.2 g/dL (31.5-36.5); Mean Corpuscular Volume 74 fL (80-100); Mean Platelet Volume 9.7 fL (9.1-12.4); NEUTROPHILS ABSOLUTE AUTO 8.97 K/mm3 (1.96-9.15); NEUTROPHILS PERCENT AUTO 72 % (41-73); Platelet Count 394 K/mm3 (150-400); RDW Coefficient Variation 17.1 % (11.7-14.2); RDW Standard Deviation 45.4 fL (35.1-46.3); White Blood Cell Count 12.54 K/mm3 (4.00-11.30)
[2024-09-09 18:27] LABS: Albumin, Blood 3.5 g/dL (3.4-5.0); Bilirubin, Total 0.6 mg/dL (0.1-1.0); Bun/Creatinine Ratio 22.9 (12.0-20.0); Calcium, Blood 9.3 mg/dL (8.5-10.1); Creatinine, Blood 0.83 mg/dL (0.40-1.00); Globulin, Blood 3.6 g/dL (2.2-4.0); Potassium, Blood 3.5 mmol/L (3.5-5.5); Total Protein, Blood 7.1 g/dL (6.4-8.2)
[2024-09-09] MEDS ORDERED: Furosemide 10 MG / ML 2ML Vial IV ONE (19:20)
[2024-09-09 19:37] LABS: CORONAVIRUS COVID-19 AG Negative (NEGATIVE); INFLUENZA A AG Negative (NEGATIVE); INFLUENZA B AG Negative (NEGATIVE)
[2024-09-09 19:49] LABS: Source, Urine Clean Catch
[2024-09-09 19:54] LABS: Appearance, Urine Clear (Clear); Bilirubin, Urine Neg (Neg); Blood, Urine 1+ (Neg); Color, Urine Yellow (P-Yellow); Glucose Qualitative, Urine Neg (Neg); Ketones, Urine Neg (Neg); Leukocyte Esterase, Urine 1+ (Neg); Nitrite, Urine Pos (Neg); Protein, Urine 3+ (Neg); Specific Gravity, Urine 1.015 (1.003-1.022); Urobilinogen, Urine NORM (Normal); pH, Urine 6.5 (5.0-8.0)
[2024-09-09 20:03] LABS: Bacteria Mod /hpf; Red Blood Cells, Urine 0-2 /hpf (0-2); Squamous Epithelial Cells Mod /hpf (Few)
[2024-09-09] MEDS ORDERED: Nitrofurantoin/Nitrofuran Mac 100 MG Cap PO ONE (20:20)
[2024-09-09] MEDS ORDERED: MACRODANTIN100 M1 PO (20:21)
[2024-09-09 20:30] VITALS: BP 163/134
[2024-09-09] MEDS ORDERED: HYDHCL25 PO (20:35)
== END 2024-09-09 20:52 | disposition home or self-care (01) ==
LOC: ER 17:38
PROVIDERS: Student in an Organized Health Care Education/Training Program
DX: R07.9 Chest pain, unspecified (principal); F41.9 Anxiety disorder, unspecified; N30.90 Cystitis, unspecified without hematuria; E11.40 Type 2 diabetes mellitus with diabetic neuropathy, unspecified; J44.9 Chronic obstructive pulmonary disease, unspecified; I25.2 Old myocardial infarction; Z88.2 Allergy status to sulfonamides; Z79.1 Long term (current) use of non-steroidal anti-inflammatories (NSAID); Z88.8 Allergy status to other drugs, medicaments and biological substances; Z88.5 Allergy status to narcotic agent; Z88.1 Allergy status to other antibiotic agents; Z79.01 Long term (current) use of anticoagulants; Z79.2 Long term (current) use of antibiotics; Z79.4 Long term (current) use of insulin
CPT/HCPCS: 71045; 80053; 81001; 83735; 83880; 84484; 85025; 87077; 87086; 87186; 87428-QW; 93005; 93010; 96374; 99285-25; A9270; J1940

== ENCOUNTER 2024-10-14 02:48 | Inpatient (IN) | payer MEDICARE, OTHER ==
[2024-10-14] VITALS (8 sets, daily range): BP systolic 106–157; BP diastolic 60–97
[~2024-10-14] VITALS: Ht 162.6 cm; Wt 82.0 kg
[~2024-10-14 02:48] MED LIST changes: +HYDHCL25 PO; +MACRODANTIN100 M1 PO
[2024-10-14 03:34] LABS: BASOPHILS ABSOLUTE AUTO 0.06 K/mm3 (0.00-0.23); BASOPHILS PERCENT AUTO 1 % (0-2); EOSINOPHILS ABSOLUTE AUTO 0.14 K/mm3 (0.00-0.68); EOSINOPHILS PERCENT AUTO 2 % (0-6); Hematocrit 26.4 % (33.0-51.0); Hemoglobin 7.7 g/dL (11.5-16.0); IMMATURE GRAN ABSOLUTE AUTO 0.05 K/mm3 (0.00-0.10); IMMATURE GRAN PERCENT AUTO 1 % (0-1); LYMPHOCYTES ABSOLUTE AUTO 0.97 K/mm3 (0.84-5.20); LYMPHOCYTES PERCENT AUTO 11 % (21-46); MONOCYTES ABSOLUTE AUTO 0.69 K/mm3 (0.16-1.47); MONOCYTES PERCENT AUTO 8 % (4-13); Mean Corpuscular HGB 20.5 pg (26.0-34.0); Mean Corpuscular HGB Conc 29.2 g/dL (31.5-36.5); Mean Corpuscular Volume 70 fL (80-100); Mean Platelet Volume 9.8 fL (9.1-12.4); NEUTROPHILS ABSOLUTE AUTO 6.63 K/mm3 (1.96-9.15); NEUTROPHILS PERCENT AUTO 78 % (41-73); Platelet Count 395 K/mm3 (150-400); RDW Coefficient Variation 17.8 % (11.7-14.2); RDW Standard Deviation 45.2 fL (35.1-46.3); Red Blood Cell Count 3.75 M/mm3 (3.80-5.20); White Blood Cell Count 8.54 K/mm3 (4.00-11.30)
[2024-10-14 03:50] LABS: Albumin, Blood 2.6 g/dL (3.4-5.0); Albumin/Globulin Ratio 0.7 (0.8-1.8); Bilirubin, Total 0.2 mg/dL (0.1-1.0); Bun/Creatinine Ratio 17.4 (12.0-20.0); Calcium, Blood 8.9 mg/dL (8.5-10.1); Creatinine, Blood 0.75 mg/dL (0.40-1.00); Globulin, Blood 3.7 g/dL (2.2-4.0); Potassium, Blood 4.1 mmol/L (3.5-5.5); Total Protein, Blood 6.3 g/dL (6.4-8.2)
[2024-10-14] MEDS ORDERED: Azithromycin 500 MG in NS 250 ML IV ONE (04:05)
[2024-10-14] MEDS ORDERED: CefTRIAXone Sodium 1,000 MG in NS 50 ML IV ONE (04:05)
[2024-10-14 04:31] LABS: Beta-hydroxybutyrate 0.7 mg/dL (0.2-2.8)
[2024-10-14 04:50] LABS: Base Excess Venous 4.2 mmol/L; Bicarbonate Venous 27.8 mmol/L (24.0-30.0); PCO2 Venous 45.6 mmHg (38-42); pH Blood Venous 7.41 (7.34-7.37)
[2024-10-14] MEDS ORDERED: FentaNYL Citrate 50 MCG/ML 2 ML Injection IV ONE (06:35)
[2024-10-14] MEDS ORDERED: Diltiazem HCl 5 MG / ML 5ML Vial IV ONE (06:35)
[2024-10-14] MEDS ORDERED: dilTIAZem HCL 125 MG in Dextrose 5% 100 ML IV SCH (06:35)
[2024-10-14 06:52] LABS: Source, Urine Clean Catch
[2024-10-14 07:26] LABS: Bilirubin, Urine Neg (Neg); Blood, Urine Neg (Neg); Glucose Qualitative, Urine 4+ (Neg); Ketones, Urine Neg (Neg); Leukocyte Esterase, Urine 2+ (Neg); Nitrite, Urine Pos (Neg); Protein, Urine 3+ (Neg); Urobilinogen, Urine NORM (Normal)
[2024-10-14 07:35] LABS: Appearance, Urine Clear (Clear); Color, Urine Yellow (P-Yellow)
[2024-10-14 07:38] LABS: Bacteria Many /hpf; Red Blood Cells, Urine 0-2 /hpf (0-2); Squamous Epithelial Cells Many /hpf (Few)
[2024-10-14] MEDS ORDERED: Furosemide 10 MG/ML 4ML Vial IV SCH (09:00)
[2024-10-14] MEDS ORDERED: FentaNYL Citrate 50 MCG/ML 2 ML Injection IV PRN (10:20)
[2024-10-14] MEDS ORDERED: HyDROXyzine HCl 25 MG Tab PO PRN (10:25)
[2024-10-14] MEDS ORDERED: CHLORPROMAZINE HCL 25 MG PO PRN (10:25)
--- NOTE | 2024-10-14 10:30 | NUR ---
PCU Admit Pt brought to PCU-15 by ronald from ER at approx 0945. Pt A&O x4, able to stand & ambulate from [facility] to PCU bed independently. Pt however needing assistance managing cords/lines. Pt brought to unit w/ rodyzem gtt infusing @ 10 mg/hr. Monitor showing afib HR 90-110s. Pt reporting 8/10 "chest pressure like a 200 pound wrestler is on top of me." Pt reports pain medication provided in ER helped reduce CP. MD notified of CP & MD w/ order for pain medication. Pt reporting chest "pressure" ongoing for 2 weeks. Pt reporting "I feel like I can't breathe." Spo2 > 92% on RA. Lung sounds clear/dim. Pt coached to deep breathe. Pt w/ improvement.
[2024-10-14] MEDS ORDERED: Mometasone/Formoterol MDI 200/5 mcg 13 GM INH SCH (10:40)
[2024-10-14] MEDS ORDERED: Insulin Glargine-Yfgn 100 Unit/mL 3 ML SYR SC SCH (11:00)
[2024-10-14] MEDS ORDERED: Insulin Human Lispro 100 Units/ML 3ML Syringe SC SCH (11:30)
[2024-10-14] MEDS ORDERED: Metoprolol Succinate 50 MG TABCR PO SCH (17:10)
--- NOTE | 2024-10-14 18:49 | NUR ---
End of Shift Pt A&O x4. VSS. Spo2 > 92% on RA. Monitor showing SR HR 90s-120s. Cardizem gtt infusing @ 10 mg/hr. Pt w/ ongoing "chest pressure." aware. Pt reporting improvement w/ PRN IV fentanyl per emar. Echo done this shift. Pt reporting meth use several weeks ago. PT reports living alone in a 5th wheel w/ no bathroom on her friend Bea's property. Pt reports using the restroom in a bucket. Pt 1 person assist to use restroom for cord management, otherwise pt ambulating independently.
--- NOTE | 2024-10-14 20:00 | NUR ---
ASSUMPTION OF CARE NOTE A/Ox4 AND COOPERATIVE WITH CARE. ANXIOUS AT TIMES, BUT ABLE TO MAKE HER NEEDS KNOWN. CARDIAC, TELE SHOWS AFIB 90-110'S, CARDIZEM gtt INFUSING PER EMAR. ENDORSES SOME MINOR CHEST PRESSURE, BUT DENIES PALPITATIONS OR CP. MILD EDEMA NOTED IN BLE NOTED. RESPIRATORY, MAINTAINS SPO2 >5% ON RA. ENDORSES SOME SOB WITH EXERTION OR WHEN LYING FLAT. REPORTS SLEEPING IN A RECLINER AT HOME. GI/, ABLE TO AMBULATE TO [facility] WITH MINIMAL ASSISTANCE FOR LINE MANAGEMENT. UP FREQUENTLY TO VOID YELLOW, FOUL SMELLING URINE. SKIN C/D/I OVERALL. 2xPIV NOTED IN LEFT ARM. VSS, NADN OF THIS NOTE.
[2024-10-14] MEDS ORDERED: Apixaban 5 MG Tab PO SCH (21:00)
[2024-10-15 03:28] LABS: Albumin, Blood 2.5 g/dL (3.4-5.0); Anion Gap 8 mmol/L (3-11); Blood Urea Nitrogen 28 mg/dL (8-24); CO2, Blood 28 mmol/L (21-32); Calcium, Blood 8.6 mg/dL (8.5-10.1); Chloride, Blood 98 mmol/L (98-108); Creatinine, Blood 0.93 mg/dL (0.40-1.00); Glomerular Filtration Rate 71 (60-); Glucose, Blood 297 mg/dL (70-99); Magnesium, Blood 1.7 mg/dL (1.6-2.4); Phosphorus, Blood 3.9 mg/dL (2.5-4.9); Potassium, Blood 4.3 mmol/L (3.5-5.5); Sodium, Blood 130 mmol/L (136-145)
[2024-10-15 04:11] VITALS: BP 107/95
[2024-10-15 05:42] VITALS: BP 118/94
--- NOTE | 2024-10-15 05:43 | NUR ---
UPDATE PT NOTED ON TELE TO HAVE A 6.5 SECOND PAUSE BEFORE RESUMING AFIB IN THE 70-90'S. PT WAS ASYMPTOMATIC WITH BP STABLE. DR. MCCRAY NOTIFIED WITH ORDERS TO CONTINUE TO MONITOR. CARDIZEM gtt CONTINUES TO BE OFF AT THIS TIME
--- NOTE | 2024-10-15 06:03 | NUR ---
SHIFT SUMMARY NO ACUTE CHANGES EXCEPT FOR 6.5 SECOND PAUSE DURING THE NIGHT. SEE ASSUMPTION OF CARE NOTE AND UPDATE NOTE FOR MORE DETAILS. CARDIZEM gtt CONTINUES TO BE ON STANDBY WITH HR RANGING 70-80'S. DENIES CHEST PAIN OR PALPITATIONS AT THIS TIME. NO NEW ORDERS AT THIS TIME, WILL REPORT TO ONCOMING RN. ALDA IYER OF THIS NOTE.
[2024-10-15 08:48] VITALS: BP 125/99
[2024-10-15] MEDS ORDERED: Metoprolol Succinate 50 MG TABCR PO SCH (09:00)
[2024-10-15] MEDS ORDERED: Amiodarone HCl 200 MG Tab PO SCH (09:00)
[2024-10-15] MEDS ORDERED: Empagliflozin 10 MG TAB PO SCH (09:00)
[2024-10-15] MEDS ORDERED: Losartan Potassium 25 MG Tab PO SCH (09:00)
[2024-10-15] MEDS ORDERED: Enoxaparin 40 MG/0.4 ML SYR SC SCH (09:00)
[2024-10-15] MEDS ORDERED: Atorvastatin 10 MG Tab PO SCH (09:00)
[2024-10-15 10:50] LABS: Hematocrit 28.7 % (33.0-51.0); Hemoglobin 8.3 g/dL (11.5-16.0)
[2024-10-15 11:25] VITALS: BP 100/84
[2024-10-15] MEDS ORDERED: HYDROmorphone HCl 2 MG Tab PO PRN (12:45)
[2024-10-15] MEDS ORDERED: FentaNYL Citrate 50 MCG/ML 2 ML Injection IV ONE ×2 (14:40→15:00)
--- NOTE | 2024-10-15 14:41 | NUR ---
CHEST PAIN PT DEVELOPED CHEST PAIN, STATING IT FEELS LIKE A 2,000 LB DOG IS SITTING ON HER CHEST. ALSO ENDORSES SOB. O2 SATURATION ON RA IS 95%. EKG OBTAINED AND REVIEWED c FRANSISCO FAUSTIN. CALL TO DR. FINK. ONE TIME DOSE OF 25 MCG [address] FINK STATES HE WILL ALSO PUT NEW MED ORDERS IN. WILL CONTINUE TO MONITOR.
[2024-10-15] MEDS ORDERED: Clopidogrel Bisulfate 300 MG TABLET PO ONE (14:45)
[2024-10-15 17:17] VITALS: BP 112/80
--- NOTE | 2024-10-15 18:36 | NUR ---
SHIFT SUMMARY PATIENT ALERT AND ORIENTED X4. ABLE TO MAKE HER NEEDS KNOWN BUT DOES ALWAYS CALL APPROPRIATELY. IMPULSIVE AND BECOMES RESTLESS. MOVES ALL EXTERMITITES WELL. CHRONIC NECK AND UPPER BACK PAIN MANGAGED WITH PRN PAIN MEDICAITONS. CARDIAC: AFIB HR 70-80S. REPORTED WORSENING CP AND DYSPNEA, EKG AND REPEAT TROPS UNREMARKABLE. PT REPORTS THAT PAIN IS IMPROVING AND DENIES ANY DYSPNEA AT THIS TIME. LUNGS: CLEAR/DIM THROUGH OUT. O2 SAT GREATER THAN 95% ON RA GI:ABDOMEN IS SOFT/NONTENDER WITH NORMOACTIVE BOWEL TONES : USING BEDSIDE COMMODE MOBILITY IMRPOVED THIS AFTERNOON INDEP BUT NEEDS SBA TO BSC AFTER ANY PAIN MEDICAITION PT BECOMES UNSTABLE ON HER FEET AND HAS POOR SAFETY AWARENESS
[2024-10-15 20:04] VITALS: BP 141/93
[2024-10-16 00:14] VITALS: BP 127/90
[2024-10-16 04:34] VITALS: BP 113/77
[2024-10-16 04:55] LABS: Hematocrit 28.3 % (33.0-51.0); Hemoglobin 8.4 g/dL (11.5-16.0); Mean Corpuscular HGB 20.7 pg (26.0-34.0); Mean Corpuscular HGB Conc 29.7 g/dL (31.5-36.5); Mean Corpuscular Volume 70 fL (80-100); NRBC ABSOLUTE 0.03 K/mm3 (0.00-0.02); NRBC Auto 0.4 /100 WBC (0.0-0.2); Platelet Count 432 K/mm3 (150-400); RDW Coefficient Variation 18.1 % (11.7-14.2); RDW Standard Deviation 45.1 fL (35.1-46.3); Red Blood Cell Count 4.05 M/mm3 (3.80-5.20); White Blood Cell Count 7.71 K/mm3 (4.00-11.30)
[2024-10-16 05:17] LABS: Albumin, Blood 2.4 g/dL (3.4-5.0); Anion Gap 10 mmol/L (3-11); Blood Urea Nitrogen 30 mg/dL (8-24); Bun/Creatinine Ratio 35.1 (12.0-20.0); CO2, Blood 27 mmol/L (21-32); Calcium, Blood 8.4 mg/dL (8.5-10.1); Chloride, Blood 100 mmol/L (98-108); Creatinine, Blood 0.85 mg/dL (0.40-1.00); Glomerular Filtration Rate 79 (60-); Glucose, Blood 172 mg/dL (70-99); Phosphorus, Blood 5.4 mg/dL (2.5-4.9); Sodium, Blood 133 mmol/L (136-145)
--- NOTE | 2024-10-16 06:27 | NUR ---
SHIFT SUMMARY ASSUMED CARE OF PT AT 1900. PT IS A/OX4. HEART SOUNDS REGULR. LUNG SOUNDS HAVE CRACKLES AT THE BASES. PT WAS SBA TO BATHROOM T/O THE NOC. PT HAD A HARD TIME SLEEPING SAYING "I DONT SLEEP WELL AT NIGHT". PT REQUESTING SNACKS FREQUENTLY AND ASKED FOR ICECREAM. PT EDUCATED ABOUT STICKING TO A CONSISTANT CARB DIET. PT C.O ABOUT PAIN ALL OVER HER BODY, INCLUDING HER CHEST, MEDICATED PER EMAR.
[2024-10-16 08:41] VITALS: BP 153/96
[2024-10-16] MEDS ORDERED: Spironolactone 50 MG Tab PO SCH (09:00)
[2024-10-16] MEDS ORDERED: Polyethylene Glycol 3350 17 gm PO PRN (11:50)
[2024-10-16] MEDS ORDERED: Prochlorperazine Edisylate 10 mg Vial IV PRN (11:50)
[2024-10-16 16:07] VITALS: BP 126/107
--- NOTE | 2024-10-16 17:01 | NUR ---
SHIFT SUMMARY PT A&Ox4, CALLS AND COMMUNICATES NEEDS APPROPRIATELY. BP STABLE, SINUS 90's, DENIES CP/PRESSURE. SpO2> 92% RA, DENIES SOB. C/O NAUSEA, MANAGE PER EMAR. IND IN ROOM. CONTINENT OF URINE AND BOWEL. PT RESTED THROUGHOUT SHIFT. NO OTHER EVENTS, WILL REPORT TO ONCOMING RN.
[2024-10-16 20:44] VITALS: BP 144/102
[2024-10-16] MEDS ORDERED: Docusate Sodium/Senna 1 Tab PO SCH (21:00)
--- NOTE | 2024-10-17 02:02 | NUR ---
SHIFT SUMMARY NO ACUTE EVENTS
[2024-10-17 03:06] VITALS: BP 148/100
[2024-10-17 07:28] VITALS: BP 132/80
[2024-10-17] MEDS ORDERED: Empagliflozin 25 MG TAB PO SCH (09:00)
[2024-10-17] MEDS ORDERED: Furosemide 40 MG Tab PO SCH (09:00)
[2024-10-17] MEDS ORDERED: Empagliflozin 10 MG TAB PO ONE (09:25)
--- NOTE | 2024-10-17 10:20 | NUR ---
am note this rn assumed care at 0700. vital signs stable. tele afib 90-100s. patient is alert and oriented x4. neuro is intact. perrla. patient uses a cane at baseline and is a standby assist in the room. patient denies pain, chest pain/pressure or shortness of breath. patient lung sounds dim throughout. see shift assessment for further detials. md alvarez rounding on patient. this rn spoke with md alvarez about jardiance changes and patient receiving 10mg po jaridance already, okay to give additional 10mg po jardiance to equal 20mg and patient can recieve first dose of 25mg po jardiance tomorrow morning. this rn spoke with md alvarez regarding needing a new iv and okay to have no iv access order. see orders. plan of care is up to date
[2024-10-17 12:15] VITALS: BP 146/99
--- NOTE | 2024-10-17 13:35 | NUR ---
update this rn gavr report to medical floor nurse wong. patient will be moving to room 338 when it is clean.
[2024-10-17 14:19] VITALS: BP 113/93
--- NOTE | 2024-10-17 14:20 | NUR ---
transfer of care patient went to room 338 at 1408. patient left with all belongings. patient left in no distres. no acute changes. see previous notes.
--- NOTE | 2024-10-17 17:41 | NUR ---
PT WAS A TRANSFER FROM U 15. PT HAS NO QUESTIONS OR CONCERNS AT THIS TIME. PT CLARISSE ANXIETY WITH C/O PAIN, SEE EMAR FOR MEDS GIVEN.
[2024-10-17 19:52] VITALS: BP 114/64
[2024-10-18 01:08] VITALS: BP 125/98
--- NOTE | 2024-10-18 04:58 | NUR ---
PT A&O X4, VS WNL, TELE AFIB, CHRONIC. PT INDEPENDENT WITH MOBILITY AND ADL'S. CBG 217 AND ONLY MEDICATED WITH LONG ACTING INSULIN, REMAINS ON PO MEDS ALSO. PT NONCOMPLIANT WITH WITH DIET. HAS CHRONIC ANXIETY AND PAIN, WAS MEDICATED WITH DILAUDID AND THORAZINE X2 THIS SHIFT. PLAN TO D/C TO HOME.
[2024-10-18 05:09] VITALS: BP 105/67
[2024-10-18 05:28] LABS: Hematocrit 31.5 % (33.0-51.0); Mean Corpuscular HGB Conc 28.6 g/dL (31.5-36.5); Mean Corpuscular Volume 70 fL (80-100); Mean Platelet Volume 9.5 fL (9.1-12.4); NRBC ABSOLUTE 0.02 K/mm3 (0.00-0.02); NRBC Auto 0.2 /100 WBC (0.0-0.2); Platelet Count 404 K/mm3 (150-400); RDW Coefficient Variation 18.1 % (11.7-14.2); RDW Standard Deviation 44.4 fL (35.1-46.3); Red Blood Cell Count 4.51 M/mm3 (3.80-5.20); White Blood Cell Count 10.76 K/mm3 (4.00-11.30)
[2024-10-18 05:54] LABS: Albumin, Blood 2.6 g/dL (3.4-5.0); Anion Gap 11 mmol/L (3-11); Blood Urea Nitrogen 31 mg/dL (8-24); Bun/Creatinine Ratio 32.5 (12.0-20.0); CO2, Blood 25 mmol/L (21-32); Calcium, Blood 8.7 mg/dL (8.5-10.1); Chloride, Blood 100 mmol/L (98-108); Creatinine, Blood 0.96 mg/dL (0.40-1.00); Glomerular Filtration Rate 69 (60-); Glucose, Blood 107 mg/dL (70-99); Magnesium, Blood 1.9 mg/dL (1.6-2.4); Sodium, Blood 132 mmol/L (136-145)
[2024-10-18 07:45] VITALS: BP 122/83
[2024-10-18 15:21] VITALS: BP 112/63
--- NOTE | 2024-10-18 17:38 | NUR ---
PT HAS HAD BOUTS OF ANXIETY AND PAIN THROUGH THE DAY. SEE EMAR FOR PRN MEDICATIONS GIVE. PT HAD O C/O SOB OR CHEST PAIN
[2024-10-18 19:40] VITALS: BP 118/76
[2024-10-19] VITALS: BP 116/90
--- NOTE | 2024-10-19 05:35 | NUR ---
PT A&O X4, INCREASED ANXIETY THIS SHIFT, MEDICATED WITH THORAZINE X2, AND PAIN IN NECK AND SHOULDERS WITH OXYCODONE ADMINISTERED X2. PT UP INDEPENDENTLY. VOIDS, BM X1 THIS SHIFT, PT STATES IT IS STILL LOOSE. TELE STILL REMAINS AFIB WITH BBB, THIS IS CHRONIC. CBG 243 WITH ADMINISTRATION OF LONG ACTING INSULIN ONLY. PLAN IS TO D/C HOME TODAY.
[2024-10-19 05:40] VITALS: BP 127/79
[2024-10-19 07:40] VITALS: BP 103/68
[2024-10-19] MEDS ORDERED: HYDMOR2 PO (12:17)
[2024-10-19] MEDS ORDERED: SPIR50 PO (12:18)
--- NOTE | 2024-10-19 12:32 | NUR ---
PT WAS DISCHARGED PER MD ORDERS. PT HAS INSTRUCTION PACKET AND HARD SCRIPT
== END 2024-10-19 12:31 | disposition home or self-care (01) | DRG 291 ==
LOC: ER 02:48 → ERHOLD 05:19 → PCU 05:19 → MEDS 10-17 14:12
PROVIDERS: Emergency Medicine; Internal Medicine; ADMIT Internal Medicine
DX: I11.0 Hypertensive heart disease with heart failure (principal); I50.23 Acute on chronic systolic (congestive) heart failure; I48.91 Unspecified atrial fibrillation; E11.65 Type 2 diabetes mellitus with hyperglycemia; I25.10 Atherosclerotic heart disease of native coronary artery without angina pectoris; E78.5 Hyperlipidemia, unspecified; F41.9 Anxiety disorder, unspecified; J44.9 Chronic obstructive pulmonary disease, unspecified; G89.29 Other chronic pain; Z66 Do not resuscitate; D64.9 Anemia, unspecified; Z60.2 Problems related to living alone; Z22.358 Carrier of other Enterobacterales; Z88.8 Allergy status to other drugs, medicaments and biological substances; Z88.5 Allergy status to narcotic agent; Z88.6 Allergy status to analgesic agent; Z79.01 Long term (current) use of anticoagulants; Z79.84 Long term (current) use of oral hypoglycemic drugs; Z79.51 Long term (current) use of inhaled steroids; Z79.4 Long term (current) use of insulin; Z79.52 Long term (current) use of systemic steroids; I25.2 Old myocardial infarction; Z86.711 Personal history of pulmonary embolism; Z95.5 Presence of coronary angioplasty implant and graft
CPT/HCPCS: 36415; 71045; 71260; 80053; 80069; 81001; 82010; 82803; 82947; 83036; 83605; 83735; 83880; 84145; 84484; 85014; 85018; 85025; 85027; 87040; 87077; 87086; 87186; 93005; 93010; 93306; 94640; 94760; 94762; 96365; 99285-25; A9270; J0456; J0696; J0780; J1815; J1940; J3010; J7050; Q9967

== ENCOUNTER 2025-03-08 16:44 | Emergency (ER) | payer MEDICARE, OTHER ==
[~2025-03-08] VITALS: Ht 157.5 cm; Wt 80.3 kg
[~2025-03-08 16:44] MED LIST changes: +HYDMOR2 PO; +SPIR50 PO
[2025-03-08 17:20] LABS: BASOPHILS ABSOLUTE AUTO 0.07 K/mm3 (0.00-0.23); BASOPHILS PERCENT AUTO 1 % (0-2); EOSINOPHILS ABSOLUTE AUTO 0.17 K/mm3 (0.00-0.68); EOSINOPHILS PERCENT AUTO 2 % (0-6); Hematocrit 35.8 % (33.0-51.0); Hemoglobin 10.8 g/dL (11.5-16.0); IMMATURE GRAN ABSOLUTE AUTO 0.02 K/mm3 (0.00-0.10); IMMATURE GRAN PERCENT AUTO 0 % (0-1); LYMPHOCYTES ABSOLUTE AUTO 2.03 K/mm3 (0.84-5.20); LYMPHOCYTES PERCENT AUTO 23 % (21-46); MONOCYTES ABSOLUTE AUTO 0.55 K/mm3 (0.16-1.47); MONOCYTES PERCENT AUTO 6 % (4-13); Mean Corpuscular HGB Conc 30.2 g/dL (31.5-36.5); Mean Corpuscular Volume 72 fL (80-100); NEUTROPHILS ABSOLUTE AUTO 6.08 K/mm3 (1.96-9.15); NEUTROPHILS PERCENT AUTO 68 % (41-73); NRBC ABSOLUTE 0.00 K/mm3 (0.00-0.02); NRBC Auto 0.0 /100 WBC (0.0-0.2); Platelet Count 288 K/mm3 (150-400); RDW Coefficient Variation 18.7 % (11.7-14.2); RDW Standard Deviation 48.2 fL (35.1-46.3)
[2025-03-08] MEDS ORDERED: Metoprolol Tartrate 1 MG/ML 5 ML VIAL IV ONE (17:25)
[2025-03-08 17:50] LABS: Magnesium, Blood 2.1 mg/dL (1.6-2.4)
[2025-03-08 17:51] LABS: Alanine Aminotransfer (ALT/SGP 20.0 U/L (12-78); Albumin, Blood 3.4 g/dL (3.4-5.0); Albumin/Globulin Ratio 1.0 (0.8-1.8); Anion Gap 8.0 mmol/L (3-11); Aspartate Aminotrans (AST/SGOT 17.0 U/L (12-37); Bilirubin, Total 0.3 mg/dL (0.1-1.0); Blood Urea Nitrogen 27.0 mg/dL (8-24); CO2, Blood 29.0 mmol/L (21-32); Calcium, Blood 9.2 mg/dL (8.5-10.1); Chloride, Blood 101.0 mmol/L (98-108); Creatinine, Blood 1.03 mg/dL (0.40-1.00); Globulin, Blood 3.3 g/dL (2.2-4.0); Glucose, Blood 345.0 mg/dL (70-99); Potassium, Blood 4.1 mmol/L (3.5-5.5); Sodium, Blood 134.0 mmol/L (136-145); Total Protein, Blood 6.7 g/dL (6.4-8.2)
[2025-03-08 19:00] VITALS: BP 121/82
== END 2025-03-08 19:24 | disposition home or self-care (01) ==
LOC: ER 16:44
PROVIDERS: Student in an Organized Health Care Education/Training Program
DX: I48.0 Paroxysmal atrial fibrillation (principal); I25.2 Old myocardial infarction; I50.9 Heart failure, unspecified; J44.9 Chronic obstructive pulmonary disease, unspecified; E11.40 Type 2 diabetes mellitus with diabetic neuropathy, unspecified; Z87.891 Personal history of nicotine dependence; Z79.01 Long term (current) use of anticoagulants; Z79.84 Long term (current) use of oral hypoglycemic drugs; Z79.51 Long term (current) use of inhaled steroids; Z79.4 Long term (current) use of insulin; Z79.899 Other long term (current) drug therapy
CPT/HCPCS: 71045; 80053; 83735; 83880; 84484; 85025; 93005; 93010; 96374; 99285-25; A9270

== ENCOUNTER 2025-03-13 18:07 | Emergency (ER) | payer MEDICARE, OTHER ==
[~2025-03-13] VITALS: Ht 162.6 cm; Wt 75.8 kg
[2025-03-13 18:37] LABS: BASOPHILS ABSOLUTE AUTO 0.06 K/mm3 (0.00-0.23); BASOPHILS PERCENT AUTO 1 % (0-2); EOSINOPHILS ABSOLUTE AUTO 0.18 K/mm3 (0.00-0.68); EOSINOPHILS PERCENT AUTO 2 % (0-6); Hematocrit 36.3 % (33.0-51.0); Hemoglobin 11.0 g/dL (11.5-16.0); IMMATURE GRAN ABSOLUTE AUTO 0.04 K/mm3 (0.00-0.10); IMMATURE GRAN PERCENT AUTO 0 % (0-1); LYMPHOCYTES ABSOLUTE AUTO 2.26 K/mm3 (0.84-5.20); LYMPHOCYTES PERCENT AUTO 19 % (21-46); MONOCYTES ABSOLUTE AUTO 0.55 K/mm3 (0.16-1.47); MONOCYTES PERCENT AUTO 5 % (4-13); Mean Corpuscular HGB Conc 30.3 g/dL (31.5-36.5); Mean Corpuscular Volume 73 fL (80-100); NEUTROPHILS ABSOLUTE AUTO 8.91 K/mm3 (1.96-9.15); NEUTROPHILS PERCENT AUTO 74 % (41-73); NRBC ABSOLUTE 0.00 K/mm3 (0.00-0.02); NRBC Auto 0.0 /100 WBC (0.0-0.2); Platelet Count 327 K/mm3 (150-400); RDW Coefficient Variation 19.1 % (11.7-14.2); RDW Standard Deviation 49.7 fL (35.1-46.3)
[2025-03-13 18:55] LABS: Alanine Aminotransfer (ALT/SGP 24.0 U/L (12-78); Albumin, Blood 3.4 g/dL (3.4-5.0); Albumin/Globulin Ratio 0.9 (0.8-1.8); Anion Gap 12.0 mmol/L (3-11); Aspartate Aminotrans (AST/SGOT 18.0 U/L (12-37); Bilirubin, Total 0.2 mg/dL (0.1-1.0); Blood Urea Nitrogen 30.0 mg/dL (8-24); CO2, Blood 26.0 mmol/L (21-32); Calcium, Blood 9.4 mg/dL (8.5-10.1); Chloride, Blood 101.0 mmol/L (98-108); Creatinine, Blood 1.38 mg/dL (0.40-1.00); Globulin, Blood 3.7 g/dL (2.2-4.0); Glucose, Blood 246.0 mg/dL (70-99); Potassium, Blood 3.8 mmol/L (3.5-5.5); Sodium, Blood 135.0 mmol/L (136-145); Total Protein, Blood 7.1 g/dL (6.4-8.2)
[2025-03-13] MEDS ORDERED: NS 1,000 ML IV SCH (19:35)
[2025-03-13] MEDS ORDERED: FentaNYL Citrate 50 MCG/ML 2 ML Injection IV ONE (19:40)
[2025-03-13 22:00] VITALS: BP 141/63
== END 2025-03-13 22:58 | disposition home or self-care (01) ==
LOC: ER 18:07
PROVIDERS: Student in an Organized Health Care Education/Training Program
DX: R07.9 Chest pain, unspecified (principal); E11.9 Type 2 diabetes mellitus without complications; E11.40 Type 2 diabetes mellitus with diabetic neuropathy, unspecified; J44.9 Chronic obstructive pulmonary disease, unspecified; I50.20 Unspecified systolic (congestive) heart failure; Z87.442 Personal history of urinary calculi; Z88.8 Allergy status to other drugs, medicaments and biological substances; Z79.01 Long term (current) use of anticoagulants; Z79.4 Long term (current) use of insulin; Z79.899 Other long term (current) drug therapy
CPT/HCPCS: 71046; 80053; 83690; 84484; 85025; 93005; 93010; 96374; 99285-25; J3010; J7030